=== PATIENT | male | born 1960 | race African-American/Black ===

== ENCOUNTER 2018-12-01 22:52 | Emergency (ER) | payer MEDICAID ==
[~2018-12-01] VITALS: Ht 167.6 cm; Wt 72.0 kg
[~2018-12-01 22:52] MED LIST: HYDR25TA PO; SERT25TA
[2018-12-02 01:15] VITALS: BP 152/99
== END 2018-12-02 01:15 | disposition home or self-care (01) ==
LOC: ER 22:52
DX: S62.502A Fracture of unspecified phalanx of left thumb, initial encounter for closed fracture (principal); F32.9 Major depressive disorder, single episode, unspecified; I11.9 Hypertensive heart disease without heart failure; F12.10 Cannabis abuse, uncomplicated; F17.200 Nicotine dependence, unspecified, uncomplicated; G89.29 Other chronic pain; M54.9 Dorsalgia, unspecified; Z98.890 Other specified postprocedural states; X58.XXXA Exposure to other specified factors, initial encounter; Y93.89 Activity, other specified; Y92.89 Other specified places as the place of occurrence of the external cause; Y99.8 Other external cause status
CPT/HCPCS: 99282